=== PATIENT | male | born 1940 | race Caucasian/White ===

== ENCOUNTER → 2018-03-05 | Outpatient (CLI) | payer MEDICARE ==
[~2018-03-05] MED LIST: ALL100 PO; ALL300 PO; ASP325 PO; ASPI81TA94 PO; ATOR10TA24 PO; BP PILL PO; GLY25 PO; GLY5 PO; HYDR-4309 PO; INSU100I30 SQ; LISI-355 PO; LISI-362 PO; MET500 PO; METF-421 PO
[2018-03-05 06:17] LABS: LDL CHOLESTEROL 59 mg/dl
== END ==
LOC: LAB 05:45
PROVIDERS: ATTEND Family Medicine
DX: I10 Essential (primary) hypertension (principal); E78.5 Hyperlipidemia, unspecified; E11.65 Type 2 diabetes mellitus with hyperglycemia
CPT/HCPCS: 36415; 82040; 82043; 82247; 82310; 82374; 82435; 82465; 82565; 82947; 83036; 83718; 84075; 84132; 84155; 84295; 84450; 84460; 84478; 84520; 85027

== ENCOUNTER → 2018-08-20 | Outpatient (CLI) | payer MEDICARE ==
[~2018-08-20] MED LIST changes: -HYDR-4309 PO; +HYDR-653 PO; -METF-421 PO; +METF-452 PO
[2018-08-20 08:04] LABS: LDL CHOLESTEROL 55 mg/dl
== END ==
LOC: LAB 06:36
PROVIDERS: ATTEND Family Medicine
DX: E78.5 Hyperlipidemia, unspecified (principal); E11.65 Type 2 diabetes mellitus with hyperglycemia; I10 Essential (primary) hypertension
CPT/HCPCS: 36415; 82040; 82043; 82247; 82310; 82374; 82435; 82465; 82565; 82947; 83036; 83718; 84075; 84132; 84155; 84295; 84450; 84460; 84478; 84520; 85027

== ENCOUNTER 2018-09-19 17:47 | Emergency (ER) | payer MEDICARE ==
--- NOTE | 2018-09-19 17:57 | ER Report ---
History and Physical Time Seen By MD: 17:56 HPI/ROS CHIEF COMPLAINT: Pain for 2 weeks HISTORY OF PRESENT ILLNESS: 78-year-old male presents ambulatory to the ER complaining of right knee pain. He states that he fell 6 weeks ago on his knee. It did get better after several days, but then has gotten much worse. 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 He is on allopurinol. Patient notes that he's been having trouble walking over the last several days. He notes 4/10 pain aggravated by ambulation. There is mild joint swelling. There is mild warmth. She has recent laboratory studies which show normal renal function. Patient is a type II diabetic on insulin for many years. REVIEW OF SYSTEMS: Respiratory: No cough, no dyspnea. Cardiovascular: No chest pain, no palpitations. Gastrointestinal: No vomiting, no abdominal pain. Musculoskeletal: As above Allergies: Coded Allergies: No Known Allergies (Verified Allergy, Mild, 09/19/18) Home Meds Active Scripts Hydrocodone Bit/Acetaminophen (HYDROCODON-ACETAMINOPHEN 5-325) 1 Each Tablet, 1 EACH PO Q4-6H PRN for PAIN, #20 TAB Prov:SALVATORE KHAN DO 09/19/18 Hydrocodone Bit/Acetaminophen (NORCO 5-325 TABLET) 1 Each Tablet, 1 EACH PO Q6H, #20 TAB Prov:NAOMY CARR MD 09/09/13 Reported Medications Insulin Glargine 100 Un/Ml Pen (LANTUS SOLOSTAR PEN) 100 Unit/1 Ml Insuln.pen, 2 UNIT SQ DAILY 09/09/13 Metformin Hcl (METFORMIN HCL) 1,000 Mg Tablet, 1 TAB PO BID TAKE ONE TABLET BY MOUTH TWO TIMES A DAY 09/09/13 Lisinopril (LISINOPRIL) 10 Mg Tablet, 10 MG PO BID 09/09/13 Lisinopril/Hydrochlorothiazide (LISINOPRIL-HCTZ 20-25 MG TAB) 1 Each Tablet, 1 EACH PO DAILY 09/09/13 Glyburide (GLYBURIDE) 5 Mg Tab, 5 MG PO BID, TAB 09/09/13 Atorvastatin Calcium (LIPITOR) 10 Mg Tablet, 1 TAB PO QDAY, TAB TAKE ONE TABLET BY MOUTH ONCE A DAY AT BED TIME 09/09/13 Allopurinol (ZYLOPRIM 300 MG TAB (OR EQUIV)) 300 Mg Tablet, 300 MG PO EVERY OTHER DAY , TAB 09/09/13 Aspirin (ASPIRIN) 81 Mg Tab.chew, 81 MG PO QDAY, TAB.CHEW TAKE 1 TABLET BY MOUTH EVERY DAY 09/09/13 Reviewed Nurses Notes: Yes Old Medical Records Reviewed: Yes Hx Smoking: No Hx Alcohol Use: No Constitutional Vital Sign - Last 24 Hours 09/19/18 09/19/18 17:52 18:55 Temp 98.4 Pulse 90 78 Resp 18 18 B/P (MAP) 151/74 142/80 (100) Pulse Ox 90 94 O2 Delivery Room Air Room Air Physical Exam General Appearance: The patient is alert, has no immediate need for airway protection and no current signs of toxicity. Eyes: Pupils equal and round no injection. Respiratory: Chest is non tender, lungs are clear to auscultation. Cardiac: regular rate and rhythm Gastrointestinal: Abdomen is soft and non tender, no masses, bowel sounds normal. Musculoskeletal: Neck: Neck is supple and non tender. Extremities have full range of motion and are non tender. Right knee with mild effusion, warmth to the touch, ligaments are intact on stressing. There is moderate tenderness to the anterior compartment. There is no bruising or ecchymosis. Distal neurovascular functions intact. Patient has chronic bilateral 1-2+ edema with compression stockings on. Skin: No rashes or lesions. DIFFERENTIAL DIAGNOSIS: After history and physical exam differential diagnosis was considered for sprain, strain, fracture, dislocation, contusion Medical Decision Making EKG/Imaging Imaging X-ray: Right knee, 3 views was obtained. I viewed the images myself on the PACS system. My interpretation of the images is: There is a nondisplaced patellar fracture noted. There is advanced degenerative changes through all compartments of the knee.. The radiologist interpretation had no clinically significant variation from this interpretation. ED Course/Re-evaluation ED Course Patient was admitted to an examination room. H&P was done. The differential diagnoses was considered. Patient has diagnostic x-rays performed, which shows a patella fracture that is nondisplaced. He's placed in a knee immobilizer. He's advised to follow-up with orthopedics. He is given a prescription for Lortab for pain relief. He's also advised ibuprofen 400 mg 3 times a day for inflammatory pain relief. Patient has his walker left over from his previous patella fracture in 2012. Decision to Disposition Date: Sep 19, 2018 Decision to Disposition Time: 18:39 Depart Departure Latest Vital Signs Vital Signs Date Time Temp Pulse Resp B/P (MAP) Pulse Ox O2 Delivery O2 Flow Rate FiO2 09/19/18 18:55 78 18 142/80 (100) 94 Room Air 09/19/18 17:52 98.4 Impression: Primary Impression: Patella fracture Condition: Improved Disposition: HOME OR SELF-CARE Referrals: ANDREW CONNOR DO (PCP) New Scripts Hydrocodone Bit/Acetaminophen (HYDROCODON-ACETAMINOPHEN 5-325) 1 Each Tablet 1 EACH PO Q4-6H PRN for PAIN, #20 TAB Prov: SALVATORE KHAN DO 09/19/18 Patient Instructions: Patellar Fracture (DC) Additional Instructions: Wear knee immobilizer for 2 weeks Take ibuprofen 200 mg 2 tablets 3 times a day with food for inflammatory pain relief Follow-up with orthopedics as needed Problem Qualifiers Primary Impression: Patella fracture Encounter type: initial encounter Fracture type: closed Fracture morphology: longitudinal Fracture alignment: nondisplaced Laterality: right Qualified Codes: S82.024A - Nondisplaced longitudinal fracture of right patella, initial encounter for closed fracture SALVATORE KHAN DO Sep 19, 2018 17:57
[2018-09-19] MEDS ORDERED: LOR5/325 PO (18:45)
[2018-09-19 18:55] VITALS: BP 142/80
--- NOTE | 2018-09-19 19:45 | RADIOLOGY IMAGING REPORT ---
FACILITY: [facility] PATIENT NAME: Gilmar Watt : 1940 MR: [id number] V: [id number] EXAM DATE: ORDERING PHYSICIAN: SALVATORE KHAN TECHNOLOGIST: Location: [facility] Patient: Gilmar Watt : 1940 Visit/Account:[id number] Date of Sevice: 09/19/2018 KNEE 3 VIEW RIGHT HISTORY: fell 6 weeks ago mod pain Three-view examination right knee. FINDINGS: Study demonstrates vertically oriented fracture through the lateral aspect of the patella. No displac ement of the fracture components beyond the 2 mm fracture plane. Moderate joint effusion. Joint space narrowing and marginal osteophytes with chondrocalcinosis noted in the medial joint aisha rtment. Better preserved lateral joint compartment with chondrocalcinosis and marginal osteophytes. Patellofemoral DJD changes noted. IMPRESSION: 1. Vertically oriented lateral patellar pole fracture with no displacement of any significance. 2. Joint effusion. 3. Tricompartment DJD changes. Report Dictated By: Inocente Rivero MD at 09/19/2018 7:38 PM Report E-Signed By: Inocente Rivero MD at 09/19/2018 7:41 PM WSN:[id number]
== END 2018-09-19 18:55 | disposition home or self-care (01) ==
LOC: ER 18:24
DX: S82.024A Nondisplaced longitudinal fracture of right patella, initial encounter for closed fracture (principal)
CPT/HCPCS: 73562; 99283; L1830

== ENCOUNTER → 2019-03-10 | Outpatient (CLI) | payer MEDICARE ==
[~2019-03-10] MED LIST changes: +LOR5/325 PO
[2019-03-10 07:50] LABS: LDL CHOLESTEROL 70 mg/dl
== END ==
LOC: LAB 07:02
PROVIDERS: ATTEND Family Medicine
DX: I10 Essential (primary) hypertension (principal); E78.5 Hyperlipidemia, unspecified; E11.65 Type 2 diabetes mellitus with hyperglycemia; D50.9 Iron deficiency anemia, unspecified
CPT/HCPCS: 36415; 82040; 82043; 82247; 82310; 82374; 82435; 82465; 82565; 82947; 83036; 83718; 84075; 84132; 84155; 84295; 84450; 84460; 84478; 84520; 85027